=== PATIENT | male | born 1955 | race Caucasian/White ===

== ENCOUNTER → 2016-07-18 | Outpatient (CLI) | payer OTHER ==
[~2016-07-18] MED LIST: ASPIRIN325 MG PO; FENOFIBRATE145 MG PO; FISH OIL 10001000 MG PO; FLEXERIL 10 MG10 MG PO; GARLIC1 EAC1 PO; HYDROCHLOROTHIA25 MG PO; LANSOPRAZOLE30 MG PO; LIPITOR TAB 2020 MG PO; METOPROLOL TART25 MG PO; NORVASC 5 MG TAB5 MG PO; NOVOLOG100 UNIT/1 SC; PERCOCET 7.5-31 EACH PO; PLAVIX 75 MG TA75 MG PO; VALIUM2 MG PO
[2016-07-18 07:14] LABS: HEMOGLOBIN 16.5 gm/dl (14.0-17.5); RED BLOOD COUNT 5.79 M/UL (4.20-5.50); WHITE BLOOD COUNT 5.2 K/UL (4.5-11.0)
[2016-07-18 07:29] LABS: BUN/CREATININE RATIO 24 (0-10)
== END ==
LOC: LAB 06:45
PROVIDERS: Internal Medicine Nephrology
DX: N18.2 Chronic kidney disease, stage 2 (mild) (principal)
CPT/HCPCS: 36415; 80053; 82570; 84156; 85027; 85610; 85730

== ENCOUNTER → 2016-07-19 | Outpatient (CLI) | payer OTHER | LOC: CT 07-12 08:00 | PROC: 0TB03ZX Excision of Right Kidney, Percutaneous Approach, Diagnostic (ICD-10-PCS; principal; 2016-07-19) | DX: R80.9 Proteinuria, unspecified (principal); N28.9 Disorder of kidney and ureter, unspecified | CPT/HCPCS: 77012; 88305; 88313; 88346; 88348 ==

== ENCOUNTER 2020-03-06 14:32 | Emergency (ER) | payer MEDICARE, SELFPAY ==
[~2020-03-06 14:32] MED LIST changes: -ASPIRIN325 MG PO; +BENADRYL25 MG PO; -FENOFIBRATE145 MG PO; -FISH OIL 10001000 MG PO; -GARLIC1 EAC1 PO; +HUMALOG MI100 UNIT/4 SQ; +HYGROTON TAB 2525 MG PO; +LASIX40 MG PO; -LIPITOR TAB 2020 MG PO; +MEDROL DOSEPAK 24 MG PO; -METOPROLOL TART25 MG PO; +MUCINEX FAST M PO; +NORCO 10-325 T1 EACH PO; -NOVOLOG100 UNIT/1 SC; -PERCOCET 7.5-31 EACH PO; +PROTONIX40 MG PO
[2020-03-06 15:51] LABS: RED BLOOD COUNT 5.33 M/UL (4.20-5.50); WHITE BLOOD COUNT 6.5 K/UL (4.5-11.0)
[2020-03-06 16:36] LABS: BUN/CREATININE RATIO 14 (0-10)
[2020-03-06] MEDS ORDERED: LASIX40 MG PO (17:14)
[2020-03-06] MEDS ORDERED: K-DUR TAB 20 M20 MEQ PO (17:15)
[2020-03-09] MEDS ORDERED: PRAVASTATIN SOD80 MG PO (06:32)
[2020-03-09] MEDS ORDERED: LOPRESSOR50 MG PO (06:32)
[2020-03-09] MEDS ORDERED: ASPIRIN EC81 MG PO (06:35)
[2020-03-09] MEDS ORDERED: 24 HOUR ALLERG9.9 ML (06:37)
[2020-03-09] MEDS ORDERED: NEURONTIN300 MG PO (06:38)
[2020-03-09] MEDS ORDERED: SINGULAIR10 MG PO (08:43)
[2020-03-09] MEDS ORDERED: MICARDIS80 MG PO (08:43)
== END 2020-03-06 17:56 | disposition home or self-care (01) ==
LOC: ER1 14:32
PROVIDERS: Emergency Medicine
DX: I50.1 Left ventricular failure, unspecified (principal); I50.811 Acute right heart failure; Z88.0 Allergy status to penicillin; Z88.5 Allergy status to narcotic agent; Z91.041 Radiographic dye allergy status; Z88.8 Allergy status to other drugs, medicaments and biological substances; Z20.822 Contact with and (suspected) exposure to COVID-19
CPT/HCPCS: 36600; 71045; 80053; 82550; 82553; 82803; 83874; 83880; 84484; 85025; 93005; 96374; 96376; 99285; J1940; U0002

== ENCOUNTER 2020-03-09 12:53 | Inpatient (IN) | payer MEDICARE, OTHER ==
[~2020-03-09] VITALS: Ht 177.8 cm; Wt 143.8 kg
[~2020-03-09 12:53] MED LIST changes: +24 HOUR ALLERG9.9 ML; +ASPIRIN EC81 MG PO; +K-DUR TAB 20 M20 MEQ PO; +LOPRESSOR50 MG PO; +MICARDIS80 MG PO; +NEURONTIN300 MG PO; +PRAVASTATIN SOD80 MG PO; +SINGULAIR10 MG PO
[2020-03-09 14:07] LABS: HEMOGLOBIN 13.1 gm/dl (14.0-17.5); RED BLOOD COUNT 5.43 M/UL (4.20-5.50)
[2020-03-09 14:33] LABS: BUN/CREATININE RATIO 16 (0-10)
[2020-03-09] MEDS ORDERED: MUCINEX600 MG PO (16:35)
[2020-03-09] MEDS ORDERED: ALBUTEROL2.5 MG/3 M NEB (16:35)
[2020-03-09] MEDS ORDERED: CLARITIN10 MG PO (16:35)
[2020-03-09] MEDS ORDERED: VOLTAREN100 GM TP (16:37)
[2020-03-09] MEDS ORDERED: GLUCOPHAGE500 MG PO (16:37)
[2020-03-09] MEDS ORDERED: IMDUR ER TAB 3030 MG PO (16:37)
[2020-03-10 02:09] LABS: HEMOGLOBIN 12.6 gm/dl (14.0-17.5); RED BLOOD COUNT 5.23 M/UL (4.20-5.50); WHITE BLOOD COUNT 8.9 K/UL (4.5-11.0)
[2020-03-12] MEDS ORDERED: HUMALOG MI100 UNIT/4 SQ (09:32)
[2020-03-12] MEDS ORDERED: IMDUR ER TAB 3030 MG PO (09:32)
[2020-03-12] MEDS ORDERED: LASIX40 MG PO (09:32)
--- NOTE | 2020-03-12 10:13 | NUR ---
AMBULATED PATIENT PER PROVIDER VERBAL ORDER ONM ROOM AIR. PATEINT O2 SATURATION NOTED TO DROP DOWN TO 84% ON ROOM AIR. PATIENT EXPEIRINCED MILD RESPIRATORY DIFFICULTY. PROVIDER MADE AWARE AND NEW ORDERS NOTED. PATIENT PLACED BACK INTO HIS ROOM ON NASAL CANULA.
[2020-03-12] MEDS ORDERED: TED HOSE (12:13)
== END 2020-03-12 14:08 | disposition home or self-care (01) | DRG 291 ==
LOC: ER1 12:53 → CDU 15:43 → MED SURG 4 21:13
PROVIDERS: Emergency Medicine; Physician Assistant; ADMIT Internal Medicine
PROC: B24BZZZ Ultrasonography of Heart with Aorta (ICD-10-PCS; principal; 2020-03-10)
DX: I13.0 Hypertensive heart and chronic kidney disease with heart failure and stage 1 through stage 4 chronic kidney disease, or unspecified chronic kidney disease (principal); J96.21 Acute and chronic respiratory failure with hypoxia; I50.33 Acute on chronic diastolic (congestive) heart failure; Z68.42 Body mass index [BMI] 45.0-49.9, adult; J98.11 Atelectasis; Z20.822 Contact with and (suspected) exposure to COVID-19; E11.22 Type 2 diabetes mellitus with diabetic chronic kidney disease; E11.649 Type 2 diabetes mellitus with hypoglycemia without coma; I16.0 Hypertensive urgency; I87.2 Venous insufficiency (chronic) (peripheral); I25.10 Atherosclerotic heart disease of native coronary artery without angina pectoris; E78.5 Hyperlipidemia, unspecified; G89.29 Other chronic pain; M54.9 Dorsalgia, unspecified; E66.9 Obesity, unspecified; R16.1 Splenomegaly, not elsewhere classified; N18.30 Chronic kidney disease, stage 3 unspecified; Z88.5 Allergy status to narcotic agent; Z88.0 Allergy status to penicillin; Z95.1 Presence of aortocoronary bypass graft; Z88.8 Allergy status to other drugs, medicaments and biological substances; Z91.041 Radiographic dye allergy status; Z79.84 Long term (current) use of oral hypoglycemic drugs; Z79.02 Long term (current) use of antithrombotics/antiplatelets; Z79.82 Long term (current) use of aspirin; Z79.899 Other long term (current) drug therapy
CPT/HCPCS: ECHO; 36415; 36600; 71045; 76705; 80048; 80053; 82550; 82553; 82803; 82962; 83735; 83874; 83880; 84484; 85025; 85610; 85730; 93005; 93306; 96365; 96366; 96372; 96375; 96376; 97161; 99285; G0378; J1650; J1940; J1956; U0002

== ENCOUNTER 2020-04-08 11:29 | Emergency (ER) | payer MEDICARE, OTHER ==
[~2020-04-08 11:29] MED LIST changes: +ALBUTEROL2.5 MG/3 M NEB; +CLARITIN10 MG PO; +GLUCOPHAGE500 MG PO; +IMDUR ER TAB 3030 MG PO; +MUCINEX600 MG PO; +TED HOSE; +VOLTAREN100 GM TP
[2020-04-08 13:16] LABS: HEMOGLOBIN 12.3 gm/dl (14.0-17.5); RED BLOOD COUNT 4.89 M/UL (4.20-5.50); WHITE BLOOD COUNT 7.5 K/UL (4.5-11.0)
[2020-04-08 13:40] LABS: BUN/CREATININE RATIO 15 (0-10)
[2020-04-08] MEDS ORDERED: DOXYCYCLINE HY100 MG PO (14:01)
[2020-04-08] MEDS ORDERED: BUMETANIDE1 MG PO (14:01)
== END 2020-04-08 15:07 | disposition home or self-care (01) ==
LOC: ER1 11:29
PROVIDERS: Emergency Medicine
DX: I13.0 Hypertensive heart and chronic kidney disease with heart failure and stage 1 through stage 4 chronic kidney disease, or unspecified chronic kidney disease (principal); E11.22 Type 2 diabetes mellitus with diabetic chronic kidney disease; N18.9 Chronic kidney disease, unspecified; I50.9 Heart failure, unspecified; L03.116 Cellulitis of left lower limb; L03.115 Cellulitis of right lower limb; I87.8 Other specified disorders of veins; E11.9 Type 2 diabetes mellitus without complications; J44.9 Chronic obstructive pulmonary disease, unspecified; Z99.81 Dependence on supplemental oxygen; Z95.1 Presence of aortocoronary bypass graft
CPT/HCPCS: 36415; 71045; 80053; 81001; 82550; 82553; 83874; 83880; 84484; 85025; 93005; 96374; 99285; J1885; J2765

== ENCOUNTER 2020-05-27 14:13 | Inpatient (IN) | payer MEDICARE ==
[~2020-05-27] VITALS: Ht 177.8 cm; Wt 139.3 kg
[~2020-05-27 14:13] MED LIST changes: +BUMETANIDE1 MG PO; +DOXYCYCLINE HY100 MG PO
[2020-05-27] MEDS ORDERED: ISOSORBIDE MONO20 MG PO (18:04)
[2020-05-27] MEDS ORDERED: AMLODIPINE BESY10 MG PO (18:08)
[2020-05-27] MEDS ORDERED: ALDACTONE 25MG25 MG PO (18:09)
[2020-05-28 05:50] LABS: HEMOGLOBIN 9.5 gm/dl (14.0-17.5); RED BLOOD COUNT 3.89 M/UL (4.20-5.50); WHITE BLOOD COUNT 7.8 K/UL (4.5-11.0)
[2020-05-28 06:18] LABS: BUN/CREATININE RATIO 16 (0-10)
[2020-05-29 06:32] LABS: HEMOGLOBIN 9.4 gm/dl (14.0-17.5); RED BLOOD COUNT 3.8 M/UL (4.20-5.50); WHITE BLOOD COUNT 7.3 K/UL (4.5-11.0)
[2020-05-30 04:33] LABS: HEMOGLOBIN 9.1 gm/dl (14.0-17.5); RED BLOOD COUNT 3.71 M/UL (4.20-5.50); WHITE BLOOD COUNT 5.6 K/UL (4.5-11.0)
[2020-05-31 03:21] LABS: HEMOGLOBIN 9.2 gm/dl (14.0-17.5); RED BLOOD COUNT 3.81 M/UL (4.20-5.50); WHITE BLOOD COUNT 5.8 K/UL (4.5-11.0)
[2020-06-01 03:47] LABS: RED BLOOD COUNT 3.68 M/UL (4.20-5.50); WHITE BLOOD COUNT 6.6 K/UL (4.5-11.0)
[2020-06-02 09:15] LABS: HBSAG SCREEN Negative (Negative); HEP A AB, IGM Negative (Negative); HEP B CORE AB, IGM Negative (Negative); HEP C VIRUS AB <0.1 (0.0-0.9)
[2020-06-02 12:10] LABS: COMPLEMENT C3, SERUM 196 mg/dL (82-167); COMPLEMENT C4, SERUM 36 mg/dL (12-38)
[2020-06-02 13:10] LABS: ANTI-DSDNA ANTIBODIES <1 IU/mL (0-9)
[2020-06-03 10:16] LABS: ANTIGLOMERULAR BM AB 6 units (0-20)
[2020-06-03 16:11] LABS: A/G RATIO 0.8 (0.7-1.7); ALBUMIN 2.7 g/dL (2.9-4.4); ALPHA-1-GLOBULIN 0.4 g/dL (0.0-0.4); ANTIMYELOPEROXIDASE (MPO) ABS 44.4 U/mL (0.0-9.0); ANTIPROTEINASE 3 (PR-3) ABS <3.5 U/mL (0.0-3.5); ATYPICAL PANCA <1:20 titer (Neg:<1:20); GAMMA GLOBULIN 1.1 g/dL (0.4-1.8); GLOBULIN, TOTAL 3.5 g/dL (2.2-3.9); IMMUNOGLOBULIN A, QN, SERUM 165 mg/dL (61-437); IMMUNOGLOBULIN G, QN, SERUM 1092 mg/dL (603-1613); IMMUNOGLOBULIN M, QN, SERUM 130 mg/dL (20-172); M-SPIKE Comment: g/dL (Not Observed); PERINUCLEAR (P-ANCA) >1:640 titer (Neg:<1:20); PROTEIN, TOTAL, SERUM 6.2 g/dL (6.0-8.5)
--- NOTE | 2020-06-04 21:56 | NUR ---
FEMALE VISITOR ARRIVED WITH ALL KINDS AND LOTS OF CANDY. EDUCATED PATIENT AND HIS VISITOR OF BLOOD SUGAR BEING IN 400s ALL DAY AND HE DID NOT NEED TO BE EATINGT THAT CANDY.
[2020-06-05 04:14] LABS: HEMOGLOBIN 8.4 gm/dl (14.0-17.5); RED BLOOD COUNT 3.49 M/UL (4.20-5.50); WHITE BLOOD COUNT 8.3 K/UL (4.5-11.0)
--- NOTE | 2020-06-05 11:18 | NUR ---
RN LOOKED THROUGH PATIENT CHART AND FOUND DOCUMENTATION FROM [facility] THAT STATED THE PATIENT HAD BEEN TESTED FOR COVID-19 AND TESTED NEGATIVE 05/27/20. PAPER DOCUMENTATION LOCATED IN PATIENT CHART IF NEEDED.
[2020-06-06 03:24] LABS: HEMOGLOBIN 8.4 gm/dl (14.0-17.5); RED BLOOD COUNT 3.46 M/UL (4.20-5.50); WHITE BLOOD COUNT 9.1 K/UL (4.5-11.0)
[2020-06-07 04:52] LABS: HEMOGLOBIN 9.3 gm/dl (14.0-17.5)
[2020-06-07 04:53] LABS: RED BLOOD COUNT 3.85 M/UL (4.20-5.50)
[2020-06-08 04:34] LABS: HEMOGLOBIN 9.4 gm/dl (14.0-17.5); RED BLOOD COUNT 3.91 M/UL (4.20-5.50); WHITE BLOOD COUNT 9.1 K/UL (4.5-11.0)
[2020-06-09 05:26] LABS: HEMOGLOBIN 8.6 gm/dl (14.0-17.5); RED BLOOD COUNT 3.55 M/UL (4.20-5.50); WHITE BLOOD COUNT 6.9 K/UL (4.5-11.0)
[2020-06-10 06:00] LABS: HEMOGLOBIN 8.9 gm/dl (14.0-17.5); WHITE BLOOD COUNT 7.4 K/UL (4.5-11.0)
--- NOTE | 2020-06-11 06:11 | NUR ---
SL DC'D PER PT. ATTEMPTED TO ESTABLISH ANOTHER SL X1, PT REFUSED TO BE STUCK AGAIN DUE TO POSSIBLE DC HOME TODAY, STATED THAT IF HE HAD TO STAY ANOTHER DAY, THEN HE WOULD LET US PUT ANOTHER IV IN.
[2020-06-11] MEDS ORDERED: NEURONTIN300 MG PO (09:39)
[2020-06-11] MEDS ORDERED: LOPRESSOR 25 MG25 MG PO (09:39)
[2020-06-11] MEDS ORDERED: PRAVASTATIN SOD20 MG PO (09:39)
[2020-06-11] MEDS ORDERED: CATAPRES 0.1MG0.1 MG PO ×2 (09:39→09:45)
[2020-06-11] MEDS ORDERED: BUMETANIDE1 MG PO (09:39)
[2020-06-11] MEDS ORDERED: PREDNISONE 20 M20 MG PO (09:39)
== END 2020-06-11 12:58 | disposition home or self-care (01) | DRG 291 ==
LOC: MED SURG 4 17:16
PROVIDERS: Internal Medicine; Internal Medicine Nephrology; Physician Assistant Medical; ADMIT Family Medicine
PROC: 0TB33ZX Excision of Right Kidney Pelvis, Percutaneous Approach, Diagnostic (ICD-10-PCS; principal; 2020-06-08)
DX: I13.0 Hypertensive heart and chronic kidney disease with heart failure and stage 1 through stage 4 chronic kidney disease, or unspecified chronic kidney disease (principal); I50.33 Acute on chronic diastolic (congestive) heart failure; J96.21 Acute and chronic respiratory failure with hypoxia; N17.9 Acute kidney failure, unspecified; N02.8 Recurrent and persistent hematuria with other morphologic changes; M31.7 Microscopic polyangiitis; N05.7 Unspecified nephritic syndrome with diffuse crescentic glomerulonephritis; E11.22 Type 2 diabetes mellitus with diabetic chronic kidney disease; N18.30 Chronic kidney disease, stage 3 unspecified; D63.1 Anemia in chronic kidney disease; G89.29 Other chronic pain; M54.9 Dorsalgia, unspecified; R16.1 Splenomegaly, not elsewhere classified; E66.9 Obesity, unspecified; J44.9 Chronic obstructive pulmonary disease, unspecified; I27.20 Pulmonary hypertension, unspecified; I87.8 Other specified disorders of veins; Z79.4 Long term (current) use of insulin; I25.2 Old myocardial infarction; Z99.81 Dependence on supplemental oxygen; Z95.1 Presence of aortocoronary bypass graft; Z98.890 Other specified postprocedural states; Z88.0 Allergy status to penicillin; Z88.8 Allergy status to other drugs, medicaments and biological substances; Z91.041 Radiographic dye allergy status; Z83.3 Family history of diabetes mellitus; Z82.49 Family history of ischemic heart disease and other diseases of the circulatory system
CPT/HCPCS: 36415; 36600; 71045; 71046; 71250; 77012; 80048; 80053; 80069; 80074; 81001; 82550; 82553; 82570; 82728; 82784; 82803; 82962; 83520; 83540; 83550; 83735; 83880; 83883; 84155; 84156; 84165; 84484; 85007; 85025; 85027; 85610; 85730; 86038; 86160; 86225; 86256; 86334; 87040; 88305; 88313; 88346; 88348; 93005; 94640; 94664; 94760; G0379; J1644; J1650; J1940; J2405; J2930; J7070; P9047

== ENCOUNTER 2020-07-16 16:04 | Inpatient (IN) | payer MEDICARE ==
[~2020-07-16] VITALS: Ht 177.8 cm; Wt 142.4 kg
[~2020-07-16 16:04] MED LIST changes: +ALDACTONE 25MG25 MG PO; +AMLODIPINE BESY10 MG PO; +CATAPRES 0.1MG0.1 MG PO; +ISOSORBIDE MONO20 MG PO; +LOPRESSOR 25 MG25 MG PO; +PRAVASTATIN SOD20 MG PO; +PREDNISONE 20 M20 MG PO
[2020-07-16 18:23] LABS: HEMOGLOBIN 10.4 gm/dl (14.0-17.5); RED BLOOD COUNT 4.13 M/UL (4.20-5.50); WHITE BLOOD COUNT 8.7 K/UL (4.5-11.0)
[2020-07-17 04:19] LABS: HEMOGLOBIN 9.6 gm/dl (14.0-17.5); RED BLOOD COUNT 3.83 M/UL (4.20-5.50)
[2020-07-17 04:20] LABS: WHITE BLOOD COUNT 5.7 K/UL (4.5-11.0)
[2020-07-17] MEDS ORDERED: FENOFIBRATE160 MG PO (06:34)
[2020-07-17] MEDS ORDERED: ISOSORBIDE MONO30 MG PO (07:47)
[2020-07-17] MEDS ORDERED: PRAVASTATIN SOD80 MG PO (07:48)
[2020-07-17] MEDS ORDERED: MINOXIDIL2.5 MG PO (07:50)
[2020-07-17] MEDS ORDERED: ZOFRAN ODT 4 MG4 MG PO (07:51)
[2020-07-17] MEDS ORDERED: NORVASC10 MG PO (07:51)
[2020-07-17] MEDS ORDERED: KLOR-CON 1010 MEQ PO (07:51)
[2020-07-17] MEDS ORDERED: HYGROTON TAB 2525 MG PO (07:52)
[2020-07-17] MEDS ORDERED: NITROSTAT0.4 MG SL (07:52)
[2020-07-17] MEDS ORDERED: MICARDIS80 MG PO (07:53)
[2020-07-17] MEDS ORDERED: FISH OIL 1,0001 EAC1 PO (08:14)
[2020-07-17] MEDS ORDERED: BACTROBAN OINT22 GM TOP (08:17)
[2020-07-17] MEDS ORDERED: BUMETANIDE1 MG PO (08:17)
[2020-07-17] MEDS ORDERED: CLONIDINE HCL0.2 MG PO (08:18)
[2020-07-17] MEDS ORDERED: LOPRESSOR 50 MG50 MG PO (08:18)
[2020-07-18 05:10] LABS: HEMOGLOBIN 8.7 gm/dl (14.0-17.5); RED BLOOD COUNT 3.53 M/UL (4.20-5.50); WHITE BLOOD COUNT 5.3 K/UL (4.5-11.0)
--- NOTE | 2020-07-18 08:15 | NUR ---
RECEIVED NEW ORDERS FROM DR. STAFFORD FOR CMP IN AM, DIUREL, AND LASIX DRIP.
[2020-07-20 04:28] LABS: HEMOGLOBIN 7.1 gm/dl (14.0-17.5)
[2020-07-20 04:37] LABS: RED BLOOD COUNT 2.93 M/UL (4.20-5.50); WHITE BLOOD COUNT 3.5 K/UL (4.5-11.0)
--- NOTE | 2020-07-20 22:15 | NUR ---
PT BG 68 GAVE SANDWICH AND MILK, THEN HE ALSO ASK FOR PEANUTBUTTER AND APPLE JUICE AND HE ATE IT. I RECHECKED HIS BG AND IT WAS 122. WILL MONITOR FOR HYPOGLYCEMIA.
--- NOTE | 2020-07-21 05:07 | NUR ---
PT BG [address] JOHNSON, GAVE D-50. RECHECK 184, LAB CALLED A CRITICAL BG OF 42. I EXPLAINED THAT THE PROVIDER HAD BEEN NOTIFIED AND BG TREATED AND RECHECKED.
[2020-07-22 06:39] LABS: HEMOGLOBIN 7.1 gm/dl (14.0-17.5); RED BLOOD COUNT 2.89 M/UL (4.20-5.50)
[2020-07-22 06:43] LABS: WHITE BLOOD COUNT 5.2 K/UL (4.5-11.0)
[2020-07-22 15:50] LABS: HEMOGLOBIN 7.7 gm/dl (14.0-17.5); RED BLOOD COUNT 3.1 M/UL (4.20-5.50); WHITE BLOOD COUNT 5.9 K/UL (4.5-11.0)
[2020-07-23 03:49] LABS: HEMOGLOBIN 7.8 gm/dl (14.0-17.5); RED BLOOD COUNT 3.18 M/UL (4.20-5.50); WHITE BLOOD COUNT 6.3 K/UL (4.5-11.0)
[2020-07-23 11:19] LABS: URINE CREATININE 55.6 mg/dL
--- NOTE | 2020-07-23 15:31 | NUR ---
AT 1340 PATIENT REQUESTED THE LEONIDAS BOOTS HE HAS IN PLACE BE TAKEN OFF. THE NURSE CALLED DR. MILLER TO INFORM PROVIDER OF PATIENTS REQUEST. PATIENT STATED THE LEONIDAS BOOTS HURT AND HE JUST WANTED THEM OFF. DR. MILLER STATED SHE COULD NOT ORDER THE BOOTS TO BE REMOVED THEY WERE MEDICALLY NEEDED AND PERSCRIBED TO THE PATIENT. DR. MILLER FURTHER STATED THAT IF THE PATIENT WAS DUE TO HAVE THE LEONIDAS BOOTS CHANGED AND REFUSED TO PUT THEM BACK ON THAT WAS HIS RIGHT TO DO SO AGAINST HER MEDICAL ADVISE. DR. MILLER ALSO STATED THAT IF THE PATIENT TOOK THEM OFF HIMSELF THAT WAS ALSO HIS RIGHT TO DO, BUT SHE COULDNT ADVISE IT. THE NURSE SPOKE TO PATIENT, EXPLAINED WHAT THE DOCTOR SAID AND ENCOURAGED HIM TO CONTINUE TO WEAR THE LEONIDAS BOOTS. PATIENT HAS LOOSENED TOPS, BUT STILL HAS THEM ON AT THIS TIME. WCTM.
[2020-07-24 18:19] LABS: HEMOGLOBIN 8.3 gm/dl (14.0-17.5); RED BLOOD COUNT 3.38 M/UL (4.20-5.50)
[2020-07-24 18:23] LABS: WHITE BLOOD COUNT 3.8 K/UL (4.5-11.0)
[2020-07-25 06:25] LABS: HEMOGLOBIN 7.7 gm/dl (14.0-17.5); RED BLOOD COUNT 3.19 M/UL (4.20-5.50); WHITE BLOOD COUNT 3.9 K/UL (4.5-11.0)
[2020-07-25 08:13] LABS: HBSAG SCREEN Negative (Negative); HEP A AB, IGM Negative (Negative); HEP B CORE AB, IGM Negative (Negative); HEP C VIRUS AB <0.1 (0.0-0.9)
[2020-07-26 02:57] LABS: HEMOGLOBIN 7.5 gm/dl (14.0-17.5); RED BLOOD COUNT 3.07 M/UL (4.20-5.50); WHITE BLOOD COUNT 3.4 K/UL (4.5-11.0)
[2020-07-27 03:15] LABS: HEMOGLOBIN 7.2 gm/dl (14.0-17.5); RED BLOOD COUNT 2.94 M/UL (4.20-5.50)
[2020-07-28 03:23] LABS: HEMOGLOBIN 7.7 gm/dl (14.0-17.5); RED BLOOD COUNT 3.16 M/UL (4.20-5.50); WHITE BLOOD COUNT 4.1 K/UL (4.5-11.0)
[2020-07-29 02:58] LABS: HEMOGLOBIN 7.5 gm/dl (14.0-17.5); RED BLOOD COUNT 3.05 M/UL (4.20-5.50); WHITE BLOOD COUNT 4.8 K/UL (4.5-11.0)
[2020-07-29] MEDS ORDERED: LOPRESSOR 50 MG50 MG PO (09:35)
[2020-07-29] MEDS ORDERED: ATOVAQUONE750 MG/5 M PO (09:36)
[2020-07-29] MEDS ORDERED: PREDNISONE 20 M20 MG PO (09:42)
[2020-07-30 03:27] LABS: HEMOGLOBIN 7.3 gm/dl (14.0-17.5); RED BLOOD COUNT 2.97 M/UL (4.20-5.50); WHITE BLOOD COUNT 5.7 K/UL (4.5-11.0)
== END 2020-07-31 15:31 | disposition home or self-care (01) | DRG 673 ==
LOC: ER1 16:04 → M/S 20:11 → CDU 20:11 → CCU 07-17 10:24 → M/S 07-18 04:00
PROVIDERS: Family Medicine; Hospitalist; Internal Medicine; Internal Medicine Nephrology; Physician Assistant; Surgery; ADMIT Internal Medicine
PROC: 02HV33Z Insertion of Infusion Device into Superior Vena Cava, Percutaneous Approach (ICD-10-PCS; 2020-07-24)
PROC: 0JH63XZ Insertion of Tunneled Vascular Access Device into Chest Subcutaneous Tissue and Fascia, Percutaneous Approach (ICD-10-PCS; 2020-07-24)
PROC: B5181ZA Fluoroscopy of Superior Vena Cava using Low Osmolar Contrast, Guidance (ICD-10-PCS; 2020-07-24)
PROC: 5A1D70Z Performance of Urinary Filtration, Intermittent, Less than 6 Hours Per Day (ICD-10-PCS; principal; 2020-07-24 07:45)
DX: N17.9 Acute kidney failure, unspecified (principal); I50.33 Acute on chronic diastolic (congestive) heart failure; J96.21 Acute and chronic respiratory failure with hypoxia; L03.116 Cellulitis of left lower limb; I13.0 Hypertensive heart and chronic kidney disease with heart failure and stage 1 through stage 4 chronic kidney disease, or unspecified chronic kidney disease; M31.7 Microscopic polyangiitis; E87.3 Alkalosis; Z68.42 Body mass index [BMI] 45.0-49.9, adult; N18.4 Chronic kidney disease, stage 4 (severe); Z20.822 Contact with and (suspected) exposure to COVID-19; I25.10 Atherosclerotic heart disease of native coronary artery without angina pectoris; G89.4 Chronic pain syndrome; E11.22 Type 2 diabetes mellitus with diabetic chronic kidney disease; E11.21 Type 2 diabetes mellitus with diabetic nephropathy; D69.6 Thrombocytopenia, unspecified; D63.1 Anemia in chronic kidney disease; L97.529 Non-pressure chronic ulcer of other part of left foot with unspecified severity; I87.2 Venous insufficiency (chronic) (peripheral); E66.01 Morbid (severe) obesity due to excess calories; Z99.2 Dependence on renal dialysis; Z95.1 Presence of aortocoronary bypass graft; Z79.82 Long term (current) use of aspirin; Z79.01 Long term (current) use of anticoagulants; I25.2 Old myocardial infarction; Z88.0 Allergy status to penicillin; Z88.8 Allergy status to other drugs, medicaments and biological substances; Z88.6 Allergy status to analgesic agent; Z91.041 Radiographic dye allergy status; Z82.49 Family history of ischemic heart disease and other diseases of the circulatory system
CPT/HCPCS: 36415; 36600; 71045; 77001; 80048; 80053; 80074; 82550; 82553; 82565; 82570; 82575; 82728; 82803; 82962; 83540; 83550; 83735; 83874; 83880; 84156; 84484; 85025; 85027; 86850; 86900; 86901; 86920; 90935; 90937; 93005; 93970; 94760; 96374; 99285; C1750; C1769; C1788; C1894; G0378; J1100; J1205; J1642; J1644; J1940; J2020; J2405; J2704; J3010; J7040; J7120; P9047; U0002

== ENCOUNTER 2020-08-10 06:43 | Emergency (ER) | payer MEDICARE ==
[~2020-08-10 06:43] MED LIST changes: +ATOVAQUONE750 MG/5 M PO; +BACTROBAN OINT22 GM TOP; +CLONIDINE HCL0.2 MG PO; +FENOFIBRATE160 MG PO; +FISH OIL 1,0001 EAC1 PO; +ISOSORBIDE MONO30 MG PO; +KLOR-CON 1010 MEQ PO; +LOPRESSOR 50 MG50 MG PO; +MINOXIDIL2.5 MG PO; +NITROSTAT0.4 MG SL; +NORVASC10 MG PO; +ZOFRAN ODT 4 MG4 MG PO
== END 2020-08-10 08:50 | disposition home or self-care (01) ==
LOC: ER1 06:43
DX: S01.81XA Laceration without foreign body of other part of head, initial encounter (principal); I13.10 Hypertensive heart and chronic kidney disease without heart failure, with stage 1 through stage 4 chronic kidney disease, or unspecified chronic kidney disease; E11.22 Type 2 diabetes mellitus with diabetic chronic kidney disease; N18.9 Chronic kidney disease, unspecified; Z99.2 Dependence on renal dialysis; F17.200 Nicotine dependence, unspecified, uncomplicated; W22.8XXA Striking against or struck by other objects, initial encounter; Y92.009 Unspecified place in unspecified non-institutional (private) residence as the place of occurrence of the external cause
CPT/HCPCS: 70450; 72125; 99283

== ENCOUNTER 2020-09-09 12:02 | Inpatient (IN) | payer MEDICARE ==
[~2020-09-09] VITALS: Ht 177.8 cm; Wt 131.5 kg
[2020-09-09] MEDS ORDERED: HYDROCODON-ACE1 EAC6 PO (15:01)
[2020-09-09] MEDS ORDERED: NEURONTIN300 MG PO (16:10)
[2020-09-09] MEDS ORDERED: ISOSORBIDE MONO30 MG PO (16:14)
[2020-09-09] MEDS ORDERED: HUMALOG MI100 UNIT/4 SQ (16:17)
[2020-09-09] MEDS ORDERED: LOPRESSOR100 MG PO (16:18)
[2020-09-10 02:42] LABS: HEMOGLOBIN 7.4 gm/dl (14.0-17.5); RED BLOOD COUNT 3.28 M/UL (4.20-5.50); WHITE BLOOD COUNT 11.7 K/UL (4.5-11.0)
--- NOTE | 2020-09-10 08:48 | NUR ---
PT REFUSES HELP IN THE BATHROOM OR CHANGING. PT IS NON COMPLIANT WITH MEDICATIONS AND TREATMENTS HERE AND AT HOME. HE PICKS THE ONES HE THINKS WORKS BEST.
[2020-09-11 05:16] LABS: HEMOGLOBIN 7.5 gm/dl (14.0-17.5); RED BLOOD COUNT 3.34 M/UL (4.20-5.50)
[2020-09-11 05:17] LABS: WHITE BLOOD COUNT 7.5 K/UL (4.5-11.0)
[2020-09-11 10:15] LABS: CREATININE, URINE 22.9 mg/dL (Not Estab.)
[2020-09-12 04:40] LABS: RED BLOOD COUNT 3.59 M/UL (4.20-5.50)
[2020-09-13 07:24] LABS: HEMOGLOBIN 7.7 gm/dl (14.0-17.5); RED BLOOD COUNT 3.53 M/UL (4.20-5.50)
[2020-09-13 07:25] LABS: WHITE BLOOD COUNT 9.6 K/UL (4.5-11.0)
[2020-09-14 03:15] LABS: HEMOGLOBIN 7.8 gm/dl (14.0-17.5); RED BLOOD COUNT 3.48 M/UL (4.20-5.50); WHITE BLOOD COUNT 8.6 K/UL (4.5-11.0)
[2020-09-16 05:19] LABS: HEMOGLOBIN 8.4 gm/dl (14.0-17.5); RED BLOOD COUNT 3.6 M/UL (4.20-5.50)
[2020-09-16] MEDS ORDERED: ISOSORBIDE MONO30 MG PO (10:06)
[2020-09-16] MEDS ORDERED: DOME-PASTE BANDA1 EA EXT (10:06)
[2020-09-16] MEDS ORDERED: DILTIAZEM 24HR240 M1 PO (10:06)
[2020-09-16] MEDS ORDERED: LOPRESSOR 50 MG50 MG PO (10:06)
[2020-09-16] MEDS ORDERED: ALDACTONE 25MG25 MG PO (10:06)
[2020-09-16] MEDS ORDERED: AMLODIPINE BESYL5 MG PO (10:06)
[2020-09-16] MEDS ORDERED: BUMETANIDE1 MG PO (10:06)
== END 2020-09-16 13:51 | disposition home or self-care (01) | DRG 291 ==
LOC: PROG CARE 14:21 → M/S 14:21
PROVIDERS: Internal Medicine Nephrology; Physician Assistant Medical; ADMIT Internal Medicine
PROC: 5A09357 Assistance with Respiratory Ventilation, Less than 24 Consecutive Hours, Continuous Positive Airway Pressure (ICD-10-PCS; principal; 2020-09-09)
DX: I13.0 Hypertensive heart and chronic kidney disease with heart failure and stage 1 through stage 4 chronic kidney disease, or unspecified chronic kidney disease (principal); J96.21 Acute and chronic respiratory failure with hypoxia; I50.33 Acute on chronic diastolic (congestive) heart failure; N17.9 Acute kidney failure, unspecified; M31.7 Microscopic polyangiitis; I16.9 Hypertensive crisis, unspecified; N18.4 Chronic kidney disease, stage 4 (severe); E66.2 Morbid (severe) obesity with alveolar hypoventilation; E87.3 Alkalosis; Z68.41 Body mass index [BMI] 40.0-44.9, adult; Z20.822 Contact with and (suspected) exposure to COVID-19; J44.9 Chronic obstructive pulmonary disease, unspecified; I87.2 Venous insufficiency (chronic) (peripheral); D63.1 Anemia in chronic kidney disease; G89.4 Chronic pain syndrome; I25.10 Atherosclerotic heart disease of native coronary artery without angina pectoris; K59.00 Constipation, unspecified; E11.40 Type 2 diabetes mellitus with diabetic neuropathy, unspecified; Z79.01 Long term (current) use of anticoagulants; Z79.82 Long term (current) use of aspirin; Z79.899 Other long term (current) drug therapy; Z95.1 Presence of aortocoronary bypass graft; Z99.81 Dependence on supplemental oxygen; Z99.2 Dependence on renal dialysis; Z88.0 Allergy status to penicillin; Z88.8 Allergy status to other drugs, medicaments and biological substances; Z88.6 Allergy status to analgesic agent; Z91.041 Radiographic dye allergy status; Z83.3 Family history of diabetes mellitus; Z82.49 Family history of ischemic heart disease and other diseases of the circulatory system; Z91.11 Patient's noncompliance with dietary regimen; Z79.4 Long term (current) use of insulin
CPT/HCPCS: 36415; 36600; 71045; 80048; 80053; 81001; 82043; 82550; 82553; 82570; 82728; 82803; 82962; 83036; 83540; 83550; 83735; 84100; 84156; 84439; 84443; 84484; 85025; 85027; 94660; 94760; J1120; J1205; J1650; J1756; J1940; J7030; Q5106

== ENCOUNTER 2020-10-06 11:59 | Emergency (ER) | payer MEDICARE ==
[~2020-10-06 11:59] MED LIST changes: +AMLODIPINE BESYL5 MG PO; +DILTIAZEM 24HR240 M1 PO; +DOME-PASTE BANDA1 EA EXT; +HYDROCODON-ACE1 EAC6 PO; +LOPRESSOR100 MG PO
[2020-10-06 14:06] LABS: HEMOGLOBIN 9.2 gm/dl (14.0-17.5); RED BLOOD COUNT 3.73 M/UL (4.20-5.50); WHITE BLOOD COUNT 5.5 K/UL (4.5-11.0)
== END 2020-10-06 16:20 | disposition home or self-care (01) ==
LOC: ER1 11:59
PROVIDERS: Family Medicine
DX: R53.1 Weakness (principal); I12.9 Hypertensive chronic kidney disease with stage 1 through stage 4 chronic kidney disease, or unspecified chronic kidney disease; E11.22 Type 2 diabetes mellitus with diabetic chronic kidney disease; N18.9 Chronic kidney disease, unspecified; D63.1 Anemia in chronic kidney disease; E11.40 Type 2 diabetes mellitus with diabetic neuropathy, unspecified; E11.65 Type 2 diabetes mellitus with hyperglycemia; Z88.0 Allergy status to penicillin; Z91.041 Radiographic dye allergy status
CPT/HCPCS: 80053; 83735; 84439; 84443; 85025; 93005; 96374; 99285; J2930